=== PATIENT | male | born 2000 | race African-American/Black ===

== ENCOUNTER 2018-01-12 15:31 | Emergency (ER) | payer MEDICAID, OTHER ==
[2018-01-12 15:45] VITALS: BP 132/68
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
--- NOTE | 2018-01-12 16:22 | RADIOLOGY REPORT (SQ) ---
EXAM DESCRIPTION: HAND RIGHT 2 VIEWS COMPLETED DATE/TIME: 01/12/2018 4:06 pm REASON FOR STUDY: pain COMPARISON: None. EXAM PARAMETERS: NUMBER OF VIEWS: Two views TECHNIQUE: AP and lateral radiographic images acquired of the right hand. LIMITATIONS: None. FINDINGS: MINERALIZATION: Normal. BONES: No acute fracture or dislocation. There is some cortical irregularity and a separate bony oss icle at the level of the proximal end of the middle phalanx of the 4th digit presumably related to pr evious trauma. JOINTS: No effusions. SOFT TISSUES: No soft tissue swelling. No foreign body. OTHER: No other significant finding. IMPRESSION: NO RADIOGRAPHIC EVIDENCE OF ACUTE INJURY. TECHNICAL DOCUMENTATION: JOB ID: [id number] [employer]- All Rights Reserved Reading location - IP/workstation name: [email or web address]
== END 2018-01-12 16:53 | disposition home or self-care (01) ==
LOC: ER 15:31
PROC: 0HQFXZZ Repair Right Hand Skin, External Approach (ICD-10-PCS; principal; 2018-01-12)
DX: S61.214A Laceration without foreign body of right ring finger without damage to nail, initial encounter (principal); M79.641 Pain in right hand; V49.9XXA Car occupant (driver) (passenger) injured in unspecified traffic accident, initial encounter
CPT/HCPCS: 99284